=== PATIENT | female | born 1975 | race Caucasian/White ===

== ENCOUNTER 2022-06-07 10:12 | Outpatient (CLI) | payer BC | END 2022-06-07 10:13 | disposition home or self-care (01) | LOC: CSHMAMMO 10:12 | PROVIDERS: ATTEND Family Medicine | DX: Z12.31 Encounter for screening mammogram for malignant neoplasm of breast (principal) | CPT/HCPCS: 77063; 77067 ==

== ENCOUNTER 2023-06-22 14:34 | Outpatient (CLI) | payer BC | END 2023-06-22 14:35 | disposition home or self-care (01) | LOC: CSHULT 14:34 | PROVIDERS: ATTEND Family Medicine | DX: Q24.9 Congenital malformation of heart, unspecified (principal) | CPT/HCPCS: 93306 ==